=== PATIENT | female | born 1975 | race Caucasian/White ===

== ENCOUNTER 2019-11-18 06:54 | Emergency (ER) | payer MEDICARE ==
[~2019-11-18] VITALS: Ht 167.6 cm; Wt 93.4 kg
--- NOTE | 2019-11-18 07:08 | NUR ---
PT AMBULATORY TO ROOM, STEADY GAIT. ERP TO BEDSIDE.
[2019-11-18] MEDS ORDERED: GABA300C10 PO (07:29)
[2019-11-18] MEDS ORDERED: PANT40TA3 PO (07:29)
[2019-11-18] MEDS ORDERED: SUCR1TAB PO (07:29)
[2019-11-18] MEDS ORDERED: ASPI1TAB31 PO (07:29)
[2019-11-18] MEDS ORDERED: MAALOX/HYOSCYAMINE/LIDOCAINE 45 ML BTL PO ONE (07:30)
--- NOTE | 2019-11-18 07:34 | NUR ---
PT SITTING IN BED, NO SIGNS OF DISTRES, VSS, ON PHONE.
[2019-11-18 07:47] LABS: BASOPHILS # (AUTO) 0.09 x10^3/uL (0-0.1); BASOPHILS % (AUTO) 1 % (0-1); EOSINOPHILS # (AUTO) 0.26 x10^3/uL (0-0.4); EOSINOPHILS % (AUTO) 2 % (1-7); LYMPHOCYTES # (AUTO) 2.74 x10^3/uL (1-3.4); LYMPHOCYTES % (AUTO) 25 % (22-44); MD NO; MEAN CORPUSCULAR HEMOGLOBIN 32.7 pg (27.0-34.8); MEAN CORPUSCULAR HGB CONC 33.4 g/dL (32.4-35.8); MEAN PLATELET VOLUME 8.5 fL (7.4-10.4); MONOCYTES # (AUTO) 0.47 x10^3/uL (0.2-0.8); MONOCYTES % (AUTO) 4 % (2-9); NEUTROPHILS # (AUTO) 7.31 x10^3/uL (1.8-6.8); NEUTROPHILS % (AUTO) 67 % (42-75); PLATELET COUNT 363 x10^3/uL (130-400); RED BLOOD COUNT 4.15 x10^6/uL (3.82-5.3); RED CELL DISTRIBUTION WIDTH 13.8 % (9.6-15.2)
[2019-11-18 07:56] LABS: ALBUMIN 3.6 g/dL (3.4-5.0); ANION GAP 7 mmol/L (5-15); CALCIUM 8.6 mg/dL (8.5-10.1); CHLORIDE 110 mmol/L (98-107)
[2019-11-18 07:59] LABS: ALANINE AMINOTRANSFERASE 17 U/L (12-78); ALKALINE PHOSPHATASE 81 U/L (45-117); BILIRUBIN,TOTAL 0.5 mg/dL (0.2-1.0); CREATININE 0.95 mg/dL (0.55-1.02); TOTAL PROTEIN 7.2 g/dL (6.4-8.2)
--- NOTE | 2019-11-18 08:11 | NUR ---
PT PROVIDED BLANKETS, VSS, NO SIGNS OF DISTRESS, SITTING IN BED, WILL CONTINUE TO MONITOR.
[2019-11-18 08:42] LABS: MICROSCOPIC NOT IND
[2019-11-18 08:45] LABS: CULTURE INDICATED? NO
--- NOTE | 2019-11-18 09:16 | NUR ---
PT UP TO BATHROOM, STEADY ON FEET, VSS, GETTING SELF DRESSED.
[2019-11-18 09:17] VITALS: BP 121/70
== END 2019-11-18 09:33 | disposition home or self-care (01) ==
LOC: ED 07:47
DX: K25.7 Chronic gastric ulcer without hemorrhage or perforation (principal); Z87.11 Personal history of peptic ulcer disease
CPT/HCPCS: 36415; 80053; 81003; 83690; 85025; 99283